=== PATIENT | male | born 1985 | race Caucasian/White ===

== ENCOUNTER 2018-02-05 11:23 | Emergency (ER) | payer MEDICAID, SELFPAY ==
[2018-02-05 11:32] VITALS: BP 129/68; PULSE 71; RESP 18; TEMP 99.2; O2SAT 98
[2018-02-05] MEDS ORDERED: Tmp-Smz 800 mg-160 mg DS Tab PO STA (12:13)
--- NOTE | 2018-02-05 12:16 | ED PDOC ---
HPI: General Adult Time Seen by Provider: 02/05/18 12:11 Chief Complaint (Nursing): Abnormal Skin Integrity Chief Complaint (Provider): SKIN INFECTION History Per: Patient (32 Y/O MALE HERE FOR EVALUATION OF CHIN SWELLING/PAIN NOTED AFTER PICKING AT INGROWN HAIR. DENIES ANY FEVERS OR CHILLS.) Past Medical History Reviewed: Historical Data, Nursing Documentation, Vital Signs Vital Signs: Last Vital Signs Temp 99.2 F 02/05/18 11:31 Pulse 71 02/05/18 11:31 Resp 18 02/05/18 11:31 BP 129/68 02/05/18 11:31 Pulse Ox 98 02/05/18 11:31 - Family History Family History: States: No Known Family Hx - Home Medications Home Medications: Ambulatory Orders Medication Instructions Recorded Sulfamethoxazole/Trimethoprim 2 each PO BID #28 tablet 02/05/18 [Bactrim Ds Tablet] - Allergies Allergies/Adverse Reactions: Allergies Allergy/AdvReac Type Severity Reaction Status Date / Time Penicillins Allergy ANAPHYLAXIS Verified 02/05/18 11:47 Review of Systems ROS Statement: Except As Marked, All Systems Reviewed And Found Negative Physical Exam - Reviewed Nursing Documentation Reviewed: Yes Vital Signs Reviewed: Yes - Physical Exam Appears: Positive for: Well, Non-toxic, No Acute Distress Head Exam: Positive for: ATRAUMATIC, NORMAL INSPECTION, NORMOCEPHALIC Skin: Positive for: Normal Color, Warm (ERYTHEMA/CRUSTY DISCHARGE NOTED CHIN) Eye Exam: Positive for: EOMI, Normal appearance, PERRL ENT: Positive for: Normal ENT Inspection Neck: Positive for: Normal, Painless ROM Cardiovascular/Chest: Positive for: Regular Rate, Rhythm Respiratory: Positive for: CNT, Normal Breath Sounds Gastrointestinal/Abdominal: Positive for: Normal Exam, Soft Back: Positive for: Normal Inspection Extremity: Positive for: Normal ROM Neurologic/Psych: Positive for: Alert, Oriented - ECG O2 Sat by Pulse Oximetry: 98 - Progress ED Course And Treament: PROCEDURE: VERBAL CONSENT PRIOR TO PROCEDURE WOUND CLEANSED WITH BETADIEN 18 GUAGE NEEDLE USED WITH UNSUCCESSFUL ATTEMPT AT ASPIRATION. BACITRACIN OINTMENT APPLIED TO WOUND. Disposition - Clinical Impression Clinical Impression: Cellulitis - Patient ED Disposition Is Patient to be Admitted: No - Disposition Disposition: Routine/Home Disposition Time: 12:16 Condition: FAIR Prescriptions: Sulfamethoxazole/Trimethoprim [Bactrim Ds Tablet] 2 each PO BID #28 tablet Instructions: Cellulitis (Skin Infection), Adult (DC)
[2018-02-05] MEDS ORDERED: Tmp-Smz 800 mg-160 mg DS Tab ONE (12:34)
== END 2018-02-05 12:49 | disposition home or self-care (01) ==
LOC: H.ER 11:23
DX: L03.211 Cellulitis of face (principal); Z88.0 Allergy status to penicillin